=== PATIENT | male | born 1965 | race Caucasian/White ===

== ENCOUNTER 2017-06-18 12:35 | Emergency (ER) | payer BC ==
[~2017-06-18] VITALS: Ht 175.3 cm; Wt 106.1 kg
[~2017-06-18 12:35] MED LIST: ALPR0.5T PO; CHLO25TA22; OMEP-10 PO; POTASSIUM; SCR1T PO; SUCR1TAB PO
--- OUTSIDE RECORDS SUMMARY | 2017-06-18 12:50 | XMS REPORT | Continuity of Care Document ---
Author Author [facility] Organization [facility] Address Unknown Phone Unavailable Allergies Active Description Code Type Severity Reaction Onset Reported/Identified Relationship to Patient Clinical Status Yes No Known Drug Allergies [id number] Drug Allergy Unknown N/A 08/09/2014 Medications There is no data. Problems Date Dx Coded Attending Type Code Diagnosis Diagnosed By 06/30/2014 Ot 729.5 07/10/2014 RAJANI MAST, DIVYA Yoo Ot 786.50 08/09/2014 JODY MAST, DULCE Ventura Ot 401.9 08/09/2014 JODY MAST, DULCE [place] Ot 530.81 08/09/2014 JODY MAST, DULCE Ventura Ot 786.50 08/09/2014 DULCE VERA MD Ot V58.69 09/05/2014 ROYER TELLEZ APRN Ot 300.00 09/05/2014 ROYER TELLEZ APRN Ot 536.8 09/05/2014 ROYER TELLEZ APRN Ot 787.1 09/05/2014 ROYER TELLEZ APRN Ot V58.69 05/08/2015 ROYER TELLEZ APRN Ot K21.9 Procedures There is no data. Results There is no data. Encounters ACCT No. Visit Date/Time Discharge Status Pt. Type Provider Facility Loc./Unit Complaint [id number] 05/08/2015 17:03:00 05/08/2015 23:59:59 CLS Emergency ROYER TELLEZ APRN [facility] ER [id number] 09/05/2014 18:47:00 09/05/2014 20:35:00 DIS Emergency ROYER TELLEZ APRN [facility] ER [id number] 08/09/2014 17:54:00 08/09/2014 20:43:00 DIS Emergency DULCE VERA MD [facility] ER [id number] 06/30/2014 07:10:00 06/30/2014 23:59:59 CLS Outpatient RAJANI MAST, DIVYA Yoo [facility] CARD [id number] 09/16/2010 07:06:00 Document Registration
--- NOTE | 2017-06-18 14:39 | ED Abdominal Pain ---
General Chief Complaint: Abdominal/GI Problems Stated Complaint: ABD ISSUES Nursing Triage Note: pt reports epigastric pain that radiated to his back x 30 minutes prior to arrival. pt states while in ED waiting room pain went away and has not had any since. Sepsis Screen: No Definite Risk Source of Information: Patient Exam Limitations: No Limitations History of Present Illness Date Seen by Provider: Jun 18, 2017 Time Seen by Provider: 14:37 Initial Comments To ER for appropriate with reports of sharp epigastric pain that radiates straight through to his back. He is some spicy foods this weekend and believes this may be acid reflux. On his way to the hospital the pain completely resolved but he is concerned that this pain may have represented cardiac issues like to be checked out anyway. No shortness of breath. No pain currently. Timing/Duration: 1-3 Hours Severity/Quality: Severe Location: Epigastric Radiation: No Radiation Activities at Onset: None Allergies and Home Medications Allergies Coded Allergies: No Known Drug Allergies (Unverified , 08/09/14) Home Medications Chlorthalidone 25 Mg Tablet, 25 DAILY, (Reported) Sucralfate 1 Gm Tablet, 1 GM PO QID Prescribed by: ROYER TELLEZ on 05/08/151813 [Potassium] , 10 MEQ DAILY, (Reported) Patient Home Medication List Home Medication List Reviewed: Yes Review of Systems Constitutional: see HPI EENTM: No Symptoms Reported Respiratory: No Symptoms Reported Cardiovascular: No Symptoms Reported Gastrointestinal: See HPI, Abdominal Pain, Denies Constipated, Denies Diarrhea , Denies Nausea Genitourinary: No Symptoms Reported Musculoskeletal: no symptoms reported Skin: no symptoms reported Psychiatric/Neurological: No Symptoms Reported Endocrine: No Symptoms Reported Hematologic/Lymphatic: No Symptoms Reported Past Ghtgcnj-Vmfkje-Agdykt Hx Patient Social History Alcohol Use: Denies Use Recreational Drug Use: No Smoking Status: Former Smoker Former Smoker, Quit: Jun 06, 2006 Recent Foreign Travel: No Contact w/Someone Who Travel: No Recent Infectious Disease Expo: No Physical Abuse: No Sexual Abuse: No Mistreated: No Fear: No Seasonal Allergies Seasonal Allergies: No Surgeries History of Surgeries: No Respiratory History of Respiratory Disorde: No Cardiovascular History of Cardiac Disorders: Yes Cardiac Disorders: Hypertension Neurological History of Neurological Disord: No Gastrointestinal History of Gastrointestinal Di: Yes Gastrointestinal Disorders: Gastroesophageal Reflux, Ulcer Musculoskeletal History of Musculoskeletal Dis: No Endocrine History of Endocrine Disorders: Yes Cancer History of Cancer: No Psychosocial History of Psychiatric Problem: No Suicide Risk Score: 0 Integumentary History of Skin or Integumenta: No Blood Transfusions History of Blood Disorders: No Family Medical History Significant Family History: Hypertension Physical Exam Vital Signs VS - Last 72 Hours, by Label 06/18/17 14:09 Temp 98.4 Pulse 69 Resp 20 B/P (MAP) 196/106 (136) Pulse Ox 98 Capillary Refill : Less Than 3 Seconds General Appearance: WD/WN, no apparent distress, other (as mentioned he is completely pain-free at this time without any symptoms whatsoever.) HEENT: PERRL/EOMI, normal ENT inspection Neck: non-tender, full range of motion Respiratory: no respiratory distress, no accessory muscle use Cardiovascular: regular rate, rhythm, no murmur Gastrointestinal: normal bowel sounds, non tender, soft Extremities: normal range of motion, non-tender Neurologic/Psychiatric: alert, normal mood/affect, oriented x 3 Skin: normal color, warm/dry Progress/Results/Core Measures Results/Orders Lab Results Laboratory Tests Test 06/18/17 15:00 Range/Units White Blood Count 9.5 4.3-11.0 10^3/uL Red Blood Count 5.04 4.35-5.85 10^6/uL Hemoglobin 15.8 13.3-17.7 G/DL Hematocrit 43 40-54 % Mean Corpuscular Volume 86 80-99 FL Mean Corpuscular Hemoglobin 31 25-34 PG Mean Corpuscular Hemoglobin Concent 36 32-36 G/DL Red Cell Distribution Width 12.5 10.0-14.5 % Platelet Count 235 130-400 10^3/uL Mean Platelet Volume 10.8 H 7.4-10.4 FL Neutrophils (%) (Auto) 69 42-75 % Lymphocytes (%) (Auto) 23 12-44 % Monocytes (%) (Auto) 7 0-12 % Eosinophils (%) (Auto) 1 0-10 % Basophils (%) (Auto) 0 0-10 % Neutrophils # (Auto) 6.6 1.8-7.8 X 10^3 Lymphocytes # (Auto) 2.2 1.0-4.0 X 10^3 Monocytes # (Auto) 0.6 0.0-1.0 X 10^3 Eosinophils # (Auto) 0.1 0.0-0.3 10^3/uL Basophils # (Auto) 0.0 0.0-0.1 10^3/uL Sodium Level 140 135-145 MMOL/L Potassium Level 3.1 L 3.6-5.0 MMOL/L Chloride Level 100 98-107 MMOL/L Carbon Dioxide Level 31 21-32 MMOL/L Anion Gap 9 5-14 MMOL/L Blood Urea Nitrogen 13 7-18 MG/DL Creatinine 0.90 0.60-1.30 MG/DL Estimat Glomerular Filtration Rate > 60 BUN/Creatinine Ratio 14 Glucose Level 85 70-105 MG/DL Calcium Level 10.6 H 8.5-10.1 MG/DL Total Bilirubin 0.6 0.1-1.0 MG/DL Aspartate Amino Transf (AST/SGOT) 23 5-34 U/L Alanine Aminotransferase (ALT/SGPT) 35 0-55 U/L Alkaline Phosphatase 38 L 40-136 U/L Troponin I < 0.30 <0.30 NG/ML Total Protein 8.2 6.4-8.2 GM/DL Albumin 4.8 H 3.2-4.5 GM/DL Lipase 14 8-78 U/L My Orders Orders - ROYER TELLEZ APRN Cbc With Automated Diff (06/18/17 14:20) Comprehensive Metabolic Panel (06/18/17 14:20) Lipase (06/18/17 14:20) Saline Lock/Iv-Start (06/18/17 14:20) Ekg Tracing (06/18/17 14:20) Troponin I (06/18/17 14:20) Chest 1 View, Ap/Pa Only (06/18/17 14:25) Potassium Chloride (Tablet) (K Dur Table (06/18/17 15:45) Medications Given in ED Current Medications Medications Dose Ordered Sig/Juan Route Start Time Stop Time Status Last Admin Dose Admin Potassium Chloride 60 meq ONCE ONCE PO 06/18/17 15:45 06/18/17 15:46 DC 06/18/17 15:57 60 MEQ Vital Signs/I&O Vital Sign - Last 12Hours 06/18/17 14:09 Temp 98.4 Pulse 69 Resp 20 B/P (MAP) 196/106 (136) Pulse Ox 98 Blood Pressure Mean: 136 Departure Impression Impression: Primary Impression: Epigastric pain Disposition: 01 HOME, SELF-CARE Condition: Stable Departure-Patient Inst. Decision time for Depature: 15:58 Referrals: TK LING MD (PCP/Family) Primary Care Physician Patient Instructions: Acute Abdomen (Belly Pain) Add. Discharge Instructions: 1. REturn to ER for any concerns 2. See your doctor later this week for any concerns All discharge instructions reviewed with patient and/or family. Voiced understanding. Copy Copies To 1: TK LING MD, PETER J APRN Jun 18, 2017 14:39
[2017-06-18 15:09] LABS: BASOPHILS % (AUTO) 0 % (0-10); EOSINOPHILS # (AUTO) 0.1 10^3/uL (0.0-0.3); EOSINOPHILS % (AUTO) 1 % (0-10); HEMATOCRIT 43 % (40-54); HEMOGLOBIN 15.8 G/DL (13.3-17.7); LYMPHOCYTES # (AUTO) 2.2 X 10^3 (1.0-4.0); LYMPHOCYTES % (AUTO) 23 % (12-44); MEAN CORPUSCULAR HEMOGLOBIN 31 PG (25-34); MEAN CORPUSCULAR HGB CONC 36 G/DL (32-36); MEAN CORPUSCULAR VOLUME 86 FL (80-99); MEAN PLATELET VOLUME 10.8 FL (7.4-10.4); MONOCYTES # (AUTO) 0.6 X 10^3 (0.0-1.0); MONOCYTES % (AUTO) 7 % (0-12); NEUTROPHILS # (AUTO) 6.6 X 10^3 (1.8-7.8); NEUTROPHILS % (AUTO) 69 % (42-75); PLATELET COUNT 235 10^3/uL (130-400); RED BLOOD COUNT 5.04 10^6/uL (4.35-5.85); RED CELL DISTRIBUTION WIDTH 12.5 % (10.0-14.5); WHITE BLOOD COUNT 9.5 10^3/uL (4.3-11.0)
[2017-06-18 15:36] LABS: ALANINE AMINOTRANSFERASE 35 U/L (0-55); ALBUMIN 4.8 GM/DL (3.2-4.5); ALKALINE PHOSPHATASE 38 U/L (40-136); BILIRUBIN,TOTAL 0.6 MG/DL (0.1-1.0); BUN/CREATININE RATIO 14; CALCIUM 10.6 MG/DL (8.5-10.1); CARBON DIOXIDE 31 MMOL/L (21-32); CHLORIDE 100 MMOL/L (98-107); GFR ESTIMATED > 60; GLUCOSE 85 MG/DL (70-105); LIPASE 14 U/L (8-78); POTASSIUM 3.1 MMOL/L (3.6-5.0); SODIUM 140 MMOL/L (135-145); TOTAL PROTEIN 8.2 GM/DL (6.4-8.2)
--- NOTE | 2017-06-18 15:39 | Diagnostic Imaging Report ---
INDICATION: Epigastric pain radiating to the back. TIME OF EXAM: 3:13 p.m. COMPARISON: Correlation is made with prior study from 08/09/2014. FINDINGS: The heart size is stable. The right hemidiaphragm is chronically elevated. No infiltrate, effusion, or pneumothorax is seen. IMPRESSION: Stable chest. No acute cardiopulmonary process is detected. Dictated by: Dictated on workstation # [id number]
[2017-06-18] MEDS ORDERED: KCL 20 MEQ TAB (K-DUR) PO ONE (15:45)
[2017-06-18 16:09] VITALS: BP 177/91
== END 2017-06-18 16:09 | disposition home or self-care (01) ==
LOC: EDUNIT# 12:35 → ER 12:36
DX: R10.13 Epigastric pain (principal); I10 Essential (primary) hypertension; K21.9 Gastro-esophageal reflux disease without esophagitis; Z87.19 Personal history of other diseases of the digestive system; Z87.891 Personal history of nicotine dependence
CPT/HCPCS: 36415; 71045; 80053; 83690; 84484; 85025; 93005

== ENCOUNTER 2019-11-28 15:24 | Emergency (ER) | payer BC, OTHER ==
[~2019-11-28] VITALS: Ht 180 cm; Wt 102.0 kg
[2019-11-28] MEDS ORDERED: ASPIRIN 81 MG CHEW (CHILDREN'S ASA) PO ONE (16:00)
[2019-11-28 16:04] LABS: BASOPHILS % (AUTO) 0 % (0-10); EOSINOPHILS # (AUTO) 0.1 10^3/uL (0.0-0.3); EOSINOPHILS % (AUTO) 2 % (0-10); HEMATOCRIT 41 % (40-54); HEMOGLOBIN 14.6 G/DL (13.3-17.7); LYMPHOCYTES % (AUTO) 29 % (12-44); MEAN CORPUSCULAR HEMOGLOBIN 31 PG (25-34); MEAN CORPUSCULAR HGB CONC 35 G/DL (32-36); MEAN CORPUSCULAR VOLUME 87 FL (80-99); MEAN PLATELET VOLUME 10.9 FL (7.4-10.4); MONOCYTES # (AUTO) 0.7 X 10^3 (0.0-1.0); MONOCYTES % (AUTO) 10 % (0-12); NEUTROPHILS # (AUTO) 4.1 X 10^3 (1.8-7.8); NEUTROPHILS % (AUTO) 59 % (42-75); PLATELET COUNT 224 10^3/uL (130-400); RED CELL DISTRIBUTION WIDTH 12.8 % (10.0-14.5); WHITE BLOOD COUNT 6.9 10^3/uL (4.3-11.0)
[2019-11-28 16:16] LABS: ALBUMIN 4.5 GM/DL (3.2-4.5); CHLORIDE 101 MMOL/L (98-107); POTASSIUM 3.1 MMOL/L (3.6-5.0); SODIUM 140 MMOL/L (135-145)
[2019-11-28 16:17] LABS: CALCIUM 10.4 MG/DL (8.5-10.1)
[2019-11-28 16:18] LABS: GLUCOSE 90 MG/DL (70-105)
[2019-11-28 16:19] LABS: TOTAL PROTEIN 7.5 GM/DL (6.4-8.2)
[2019-11-28 16:20] LABS: BILIRUBIN,TOTAL 0.5 MG/DL (0.1-1.0); CARBON DIOXIDE 28 MMOL/L (21-32)
--- NOTE | 2019-11-28 16:21 | ED Chest Pain ---
General Chief Complaint: Chest Wall Stated Complaint: STOMACH PAIN Nursing Triage Note: PT STATES EARLIER TODAY HAD ONSET OF CHEST PAIN. PT STATED IT WAS A BURNING SENSATION. HX OF ACID REFLUX. PAIN RADIATED TO HIS BACK. PT REPORTS THAT PAIN HAS RESOLVED. Nursing Sepsis Screen: No Definite Risk Source: patient Exam Limitations: no limitations History of Present Illness Date Seen by Provider: Nov 28, 2019 Time Seen by Provider: 16:19 Initial Comments To ER with reports of epigastric abdominal pain that began about an hour ago. This was a burning sensation and radiated straight through to his back and to the right upper abdomen. No nausea. The pain lasted about 30 minutes before resolving on its own. No fever no chills no diaphoresis no shortness of breath. He was at rest when this started. Timing/Duration: 1-3 hours Severity/Quality: moderate Location: other Radiation: no radiation Activities at Onset: none ASA po LABEL MAKER: No NTG SL LABEL MAKER: No Allergies and Home Medications Allergies Coded Allergies: No Known Drug Allergies (Unverified , 08/09/14) Home Medications Chlorthalidone 25 Mg Tablet, 25 DAILY, (Reported) Sucralfate 1 Gm Tablet, 1 GM PO QID Prescribed by: ROYER TELLEZ on 05/08/151813 [Potassium] , 10 MEQ DAILY, (Reported) Patient Home Medication List Home Medication List Reviewed: Yes Review of Systems Review of Systems Constitutional: see HPI EENTM: No Symptoms Reported Respiratory: No Symptoms Reported Cardiovascular: No Symptoms Reported Gastrointestinal: See HPI, Abdominal Pain, Nausea Genitourinary: No Symptoms Reported Musculoskeletal: no symptoms reported Skin: no symptoms reported Psychiatric/Neurological: No Symptoms Reported Endocrine: No Symptoms Reported Hematologic/Lymphatic: No Symptoms Reported Past Urxcopu-Qlznwb-Bhzmsh Hx Patient Social History Alcohol Use: Denies Use Recreational Drug Use: No Smoking Status: Current Everyday Smoker Former Smoker, Quit: Jun 06, 2006 2nd Hand Smoke Exposure: Yes Recent Foreign Travel: No Contact w/Someone Who Travel: No Recent Infectious Disease Expo: No Physical Abuse: No Sexual Abuse: No Mistreated: No Fear: No Immunizations Up To Date Date of Influenza Vaccine: Nov 28, 2019 Seasonal Allergies Seasonal Allergies: No Past Medical History Surgeries: No Respiratory: No Cardiac: Yes Hypertension Neurological: No Gastrointestinal: Yes Gastroesophageal Reflux, Ulcer Musculoskeletal: No Endocrine: Yes Cancer: No Psychosocial: No Integumentary: No Blood Disorders: No Family Medical History Hypertension Physical Exam Vital Signs Vital Signs - First Documented 11/28/19 15:46 Temp 36.8 Pulse 62 Resp 17 B/P (MAP) 138/91 (107) Pulse Ox 96 O2 Delivery Room Air Capillary Refill : Less Than 3 Seconds Height, Weight, BMI Height: 5'9.00" Weight: 234lbs. oz. 106.342140md; 31.00 BMI Method:Stated General Appearance: No Apparent Distress, WD/WN Neck: Full Range of Motion Respiratory: Lungs Clear, Normal Breath Sounds, No Accessory Muscle Use, No Respiratory Distress Cardiovascular: Regular Rate, Rhythm, Normal Peripheral Pulses Gastrointestinal: Normal Bowel Sounds, Non Tender, Soft Neurologic/Psychiatric: Alert, Oriented x3 Skin: Normal Color, Warm/Dry Progress/Results/Core Measures Results/Orders Lab Results Laboratory Tests Test 11/28/19 15:53 Range/Units White Blood Count 6.9 4.3-11.0 10^3/uL Red Blood Count 4.76 4.35-5.85 10^6/uL Hemoglobin 14.6 13.3-17.7 G/DL Hematocrit 41 40-54 % Mean Corpuscular Volume 87 80-99 FL Mean Corpuscular Hemoglobin 31 25-34 PG Mean Corpuscular Hemoglobin Concent 35 32-36 G/DL Red Cell Distribution Width 12.8 10.0-14.5 % Platelet Count 224 130-400 10^3/uL Mean Platelet Volume 10.9 H 7.4-10.4 FL Neutrophils (%) (Auto) 59 42-75 % Lymphocytes (%) (Auto) 29 12-44 % Monocytes (%) (Auto) 10 0-12 % Eosinophils (%) (Auto) 2 0-10 % Basophils (%) (Auto) 0 0-10 % Neutrophils # (Auto) 4.1 1.8-7.8 X 10^3 Lymphocytes # (Auto) 2.0 1.0-4.0 X 10^3 Monocytes # (Auto) 0.7 0.0-1.0 X 10^3 Eosinophils # (Auto) 0.1 0.0-0.3 10^3/uL Basophils # (Auto) 0.0 0.0-0.1 10^3/uL Sodium Level 140 135-145 MMOL/L Potassium Level 3.1 L 3.6-5.0 MMOL/L Chloride Level 101 98-107 MMOL/L Carbon Dioxide Level 28 21-32 MMOL/L Anion Gap 11 5-14 MMOL/L Blood Urea Nitrogen 16 7-18 MG/DL Creatinine 0.87 0.60-1.30 MG/DL Estimat Glomerular Filtration Rate > 60 BUN/Creatinine Ratio 18 Glucose Level 90 70-105 MG/DL Calcium Level 10.4 H 8.5-10.1 MG/DL Corrected Calcium 10.0 8.5-10.1 MG/DL Magnesium Level 1.8 1.6-2.4 MG/DL Total Bilirubin 0.5 0.1-1.0 MG/DL Aspartate Amino Transf (AST/SGOT) 15 5-34 U/L Alanine Aminotransferase (ALT/SGPT) 21 0-55 U/L Alkaline Phosphatase 32 L 40-136 U/L Myoglobin 45.9 10.0-92.0 NG/ML Troponin I < 0.028 <0.028 NG/ML Total Protein 7.5 6.4-8.2 GM/DL Albumin 4.5 3.2-4.5 GM/DL Lipase 18 8-78 U/L My Orders Orders - ROYER TELLEZ APRN Cbc With Automated Diff (11/28/19 16:00) Magnesium (11/28/19 16:00) Chest 1 View, Ap/Pa Only (11/28/19 16:00) Ekg Tracing (11/28/19 16:00) Comprehensive Metabolic Panel (11/28/19 16:00) Myoglobin Serum (11/28/19 16:00) Protime With Inr (11/28/19 16:00) Partial Thromboplastin Time (11/28/19 16:00) O2 (11/28/19 16:00) Monitor-Rhythm Ecg Trace Only (11/28/19 16:00) Lipid Panel (11/29/19 06:00) Ed Iv/Invasive Line Start (11/28/19 16:00) Troponin I (11/28/19 16:00) Aspirin Chewable Tablet (Baby Aspirin Ch (11/28/19 16:00) Lipase (11/28/19 16:00) Us Gallbladder 10146 (11/28/19 16:18) Vital Signs/I&O 11/28/19 15:46 Temp 36.8 Pulse 62 Resp 17 B/P (MAP) 138/91 (107) Pulse Ox 96 O2 Delivery Room Air Blood Pressure Mean: 107 Departure Impression Primary Impression: Acid reflux disease Qualified Codes: K21.9 - Gastro-esophageal reflux disease without esophagitis Disposition: HOME, SELF-CARE Condition: Stable Departure-Patient Inst. Decision time for Depature: 17:17 Referrals: TK DE JESUS MD (PCP/Family) Primary Care Physician Patient Instructions: Gastritis (DC) Add. Discharge Instructions: 1. Start an acid douper daily as prescribed. Follow-up with Dr. De Jesus. Return to ER for any concerns or worsening symptoms. All discharge instructions reviewed with patient and/or family. Voiced understanding. Scripts Pantoprazole Sodium (Protonix) 40 Mg Tablet. 40 MG PO DAILY, #30 TAB Prov: ROYER TELLEZ APRN 11/28/19 ROYER TELLEZ APRN Nov 28, 2019 16:20
[2019-11-28 16:22] LABS: ALKALINE PHOSPHATASE 32 U/L (40-136); CREATININE SERUM 0.87 MG/DL (0.60-1.30); GFR ESTIMATED > 60
[2019-11-28 16:23] LABS: BUN/CREATININE RATIO 18; LIPASE 18 U/L (8-78)
[2019-11-28 16:25] LABS: ALANINE AMINOTRANSFERASE 21 U/L (0-55); MAGNESIUM 1.8 MG/DL (1.6-2.4)
--- NOTE | 2019-11-28 16:50 | Diagnostic Imaging Report ---
INDICATION: Chest pain. EXAMINATION: Frontal chest obtained at 04:38 p.m. and compared to 06/18/2017. FINDINGS: Heart and mediastinal silhouette are normal in appearance. The lungs are clear. There is no pneumothorax or pleural fluid. IMPRESSION: Negative chest. Dictated by: Dictated on workstation # [id number]
[2019-11-28] MEDS ORDERED: PANT40TA2 PO (17:18)
[2019-11-28 17:30] VITALS: BP 154/90
--- NOTE | 2019-11-28 17:39 | Diagnostic Imaging Report ---
PROCEDURE: US gallbladder. TECHNIQUE: Multiple real-time grayscale images were obtained over the right upper quadrant in various projections. INDICATION: Epigastric pain. FINDINGS: Hepatic echotexture is mildly elevated consistent with at least mild fatty infiltration. The gallbladder appears normal. The intrahepatic bile ducts are nondilated. The extrahepatic duct could not be visualized, obscured by gas. Gas also obscures visualization of the pancreas. The visualized portions of the aorta are nonaneurysmal, its distal third obscured. The unobstructed right kidney is normal in size, cortical thickness and echotexture. IMPRESSION: Likely mild hepatic steatosis. No biliary abnormality or ascites demonstrated. Dictated by: Dictated on workstation # [id number]
== END 2019-11-28 19:30 | disposition home or self-care (01) ==
LOC: EDUNIT# 15:24 → ER 15:25
DX: K21.9 Gastro-esophageal reflux disease without esophagitis (principal); I10 Essential (primary) hypertension; F17.200 Nicotine dependence, unspecified, uncomplicated
CPT/HCPCS: 36415; 71045; 76705; 80053; 83690; 83735; 83874; 84484; 85025; 93041